=== PATIENT | male | born 1970 | race Hispanic/Latino ===

== ENCOUNTER 2018-07-10 16:38 | Inpatient (IN) | payer BC ==
[2018-07-10 16:46] VITALS: BMI 36.9
[2018-07-10] MEDS ORDERED: Morphine 4 mg/ml ISec IVP STA ×3 (16:51→21:36)
[2018-07-10] MEDS ORDERED: Sodium Chloride 0.9% 1,000 ML IV STA ×2 (16:51→18:50)
[2018-07-10] MEDS ORDERED: Iohexol 240 (50 ml) ONE (17:02)
[2018-07-10 17:10] LABS: VENOUS BLOOD GAS BASE EXCESS 1.7 mmol/L (0.0-2.0); VENOUS BLOOD GAS PO2 69 mm/Hg (30-55); VENOUS BLOOD PH 7.39 (7.32-7.43)
[2018-07-10 17:16] VITALS: TEMP 98.6
[2018-07-10 17:18] LABS: INR 1.06; PARTIAL THROMBOPLASTIN TIME 36.1 Seconds (26.9-38.3); PROTHROMBIN TIME 11.8 SECONDS (9.4-12.5)
[2018-07-10 17:21] LABS: BASO # 0.03 K/mm3 (0.0-2.0); BASO % 0.3 % (0.0-3.0); EOS # 0.1 (0.0-0.7); EOS % 0.8 % (1.5-5.0); HEMOGLOBIN 17.9 g/dL (14.0-18.0); LYMPH # 2.2 (1.2-3.4); MEAN CELL VOLUME 78.9 fl (80.0-105.0); MEAN CORPUSCULAR HEMOGLOBIN 28.4 pg (25.0-35.0); MEAN CORPUSCULAR HGB CONC 35.9 g/dl (31.0-37.0); MEAN PLATELET VOLUME 8.8 fl (7.0-11.0); MONO # 0.7 (0.1-0.6); MONO % 7.3 % (1.0-6.0); RBC 6.31 10^6/uL (3.5-6.1); RED CELL DISTRIBUTION WIDTH 12.7 % (11.5-14.5); WHITE BLOOD COUNT 9.1 10^3/uL (4.5-11.0)
--- NOTE | 2018-07-10 17:30 | ED PDOC ---
Arrival/HPI - General Chief Complaint: GI Problem Time Seen by Provider: 07/10/18 16:39 Historian: Patient - History of Present Illness Narrative History of Present Illness (Text): 07/10/18 17:26 A 47 year old male, whose past medical history includes HLD, surgeries: diverticulitis w/ colectomy, mesh placement, and mesh rupture repair all done by Dr. Trujillo, presents to the emergency department for a complaint of abdominal p ain. Patient was seen at Dr. Barba's office today for abdominal pain, and was sent to the emergency department for further evaluation. Patient reports pain since yesterday, which worsened today. The pain is diffuse and achy, with associated nausea, 4 episodes of vomiting, not able to tolerate PO fluids, and feeling constipated. Patient denies fevers, chills, headache, dizziness, chest pain, shortness of breath, dyspnea on exertion, cough, back pain, neck pain, diarrhea, blood in bowel movements, urinary/bowel changes, or any other complaint. PMD: Dr. Barba Time/Duration: Other (Yesterday) Symptom Onset: Sudden Symptom Course: Worsening Activities at Onset: Rest, Light Context: Home Past Medical History - Provider Review Nursing Documentation Reviewed: Yes - Infectious Disease Hx of Infectious Diseases: None - Tetanus Immunization Tetanus Immunization: Unknown - Cardiac Hx Hyperlipemia: Yes - Gastrointestinal Hx Diverticulitis: Yes Other/Comment: Hernia - Psychiatric Hx Depression: No Hx Emotional Abuse: No Hx Physical Abuse: No Hx Substance Use: No - Surgical History Other/Comment: Colon resection. Hernia repair with mesh - Anesthesia Hx Anesthesia: Yes Hx Anesthesia Reactions: No Hx Malignant Hyperthermia: No - Suicidal Assessment Feels Threatened In Home Enviroment: No Family/Social History - Physician Review Nursing Documentation Reviewed: Yes Family/Social History: No Known Family HX Smoking Status: Never Smoked Hx Alcohol Use: No Hx Substance Use: No Hx Substance Use Treatment: No Allergies/Home Meds Allergies/Adverse Reactions: Allergies No Known Allergies Allergy (Verified 07/10/18 16:46) Review of Systems - Physician Review All systems were reviewed & negative as marked: Yes - Review of Systems Constitutional: absent: Fevers Respiratory: absent: SOB, Cough Cardiovascular: absent: Chest Pain, SEHR Gastrointestinal: Abdominal Pain, Constipation, Nausea, Vomiting, Food Intolerance. absent: Diarrhea Genitourinary Male: absent: Urinary Output Changes Musculoskeletal: absent: Back Pain, Neck Pain Neurological: absent: Headache, Dizziness Physical Exam Vital Signs Reviewed: Yes Vital Signs Temp Pulse Resp BP Pulse Ox 07/10/18 16:38 98.6 F 90 18 143/59 L 95 Temperature: Afebrile Blood Pressure: Hypotensive Pulse: Regular Respiratory Rate: Normal Appearance: Positive for: Well-Appearing, Non-Toxic, Comfortable Pain Distress: None Mental Status: Positive for: Alert and Oriented X 3 - Systems Exam Head: Present: Atraumatic, Normocephalic Pupils: Present: PERRL Extroacular Muscles: Present: EOMI Conjunctiva: Present: Normal Mouth: Present: Moist Mucous Membranes Neck: Present: Normal Range of Motion Respiratory/Chest: Present: Clear to Auscultation, Good Air Exchange. No: Respiratory Distress, Accessory Muscle Use Cardiovascular: Present: Regular Rate and Rhythm, Normal S1, S2. No: Murmurs Abdomen: Present: Tenderness (Diffusely tender. ), Distention, Guarding. No: Peritoneal Signs Back: Present: Normal Inspection Upper Extremity: Present: Normal Inspection. No: Cyanosis, Edema Lower Extremity: Present: Normal Inspection. No: Edema Neurological: Present: GCS=15, CN II-XII Intact, Speech Normal Skin: Present: Warm, Dry, Normal Color. No: Rashes Psychiatric: Present: Alert, Oriented x 3, Normal Insight, Normal Concentration Medical Decision Making ED Course and Treatment: 07/10/18 17:32 Impression: A 47 year old male presents to the emergency department with a complaint of worsening abdominal pain, advised to come in for evaluation by PMD. Differential Diagnosis included but are not limited to: abdominal pain r/o obstruction Plan: -- Abdomen/Pelvis CT -- Abdominal X-Ray -- Urinalysis -- Labs -- Morphine, Zofran, Pepcid, IV Fluids -- Reassess and disposition Prior Visits: Notes and results from previous visits were reviewed. Progress Notes: 07/10/18 17:34: Case discussed with Dr. Castillo (surgical assist) immediately upon arrival. Ordered stat abdominal x- ray and CT of abdomen. She evaluated patient and recommended stat NG tube, which she is going to place. 07/10/18 18:02 AXR completed. No evidence of clear obstruction. No free air. Dr. Castillo placing NGT now. Glucose elevated and being treated with IVF. Not in DKA at this time. CT pending. 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 Trujillo, and they recommended admission to the primary service with surgery on concsult. Signed out to Dr. Nix to f/u CT, reevaluate and disposition. - Critical Care Critical Care Minutes: 30 minutes - Lab Interpretations Lab Results: pO2 69 mm/Hg (30-55) H 07/10/18 17:00 VBG pH 7.39 (7.32-7.43) 07/10/18 17:00 VBG pCO2 45.0 (40-60) 07/10/18 17:00 VBG HCO3 27.2 mmol/l (21-28) 07/10/18 17:00 VBG Total CO2 28.6 mmol.L (22-28) H 07/10/18 17:00 VBG O2 Sat (Calc) 93.6 % (40-65) H 07/10/18 17:00 VBG Base Excess 1.7 mmol/L (0.0-2.0) 07/10/18 17:00 VBG Potassium 4.1 mmol/L (3.6-5.2) 07/10/18 17:00 Sodium 140.0 mmol/L (132-148) 07/10/18 17:00 Chloride 98.0 mmol/L (98-107) 07/10/18 17:00 Glucose 340 mg/dl (75-110) H 07/10/18 17:00 Lactate 1.8 mmol/L (0.7-2.1) 07/10/18 17:00 FiO2 21.0 % 07/10/18 17:00 PT 11.8 SECONDS (9.4-12.5) 07/10/18 17:00 INR 1.06 07/10/18 17:00 APTT 36.1 Seconds (26.9-38.3) 07/10/18 17:00 I have reviewed the lab results: Yes - RAD Interpretation Radiology Orders: 07/10/18 16:51 ABD PELVIS PO & IV CONTRAST [CT] Stat 07/10/18 16:55 ABD 2 VIEWS (FLAT/UP OR DECUB) [RAD] Stat - Medication Orders Current Medication Orders: Sodium Chloride (Sodium Chloride 0.9%) 1,000 mls @ 100 mls/hr IV .Q10H STA Stop: 07/11/18 02:50 Last Admin: 07/10/18 17:03 Dose: 100 mls/hr eMAR Start Stop Document 07/10/18 17:03 GMD (Rec: 07/10/18 17:03 D [id number]) Intravenous Solution Start Date 07/10/18 Start Time 17:03 Discontinued Medications Famotidine (Pepcid) 20 mg IVP STAT STA Stop: 07/10/18 16:52 Last Admin: 07/10/18 17:03 Dose: 20 mg IVP Administration Document 07/10/18 17:03 GMD (Rec: 07/10/18 17:03 D [id number]) Charges for Administration # of IVP Administrations 1 Morphine Sulfate (Morphine) 4 mg IVP STAT STA Stop: 07/10/18 16:52 Last Admin: 07/10/18 17:03 Dose: 4 mg MAR Pain Assessment Document 07/10/18 17:03 GMD (Rec: 07/10/18 17:03 D [id number]) Pain Reassessment Is this a pain reassessment? No IVP Administration Document 07/10/18 17:03 GMD (Rec: 07/10/18 17:03 D [id number]) Charges for Administration # of IVP Administrations 1 Ondansetron HCl (Zofran Inj) 4 mg IVP STAT STA Stop: 07/10/18 16:52 Last Admin: 07/10/18 17:03 Dose: 4 mg IVP Administration Document 07/10/18 17:03 GMD (Rec: 07/10/18 17:03 D [id number]) Charges for Administration # of IVP Administrations 1 - Scribe Statement The provider has reviewed the documentation as recorded by the Scribe Brianne Cuadra Provider Scribe Attestation: All medical record entries made by the Scribe were at my direction and personally dictated by me. I have reviewed the chart and agree that the record accurately reflects my personal performance of the history, physical exam, medical decision making, and the department course for this patient. I have also personally directed, reviewed, and agree with the discharge instructions and disposition. Disposition/Present on Arrival - Present on Arrival Any Indicators Present on Arrival: No History of DVT/PE: No History of Uncontrolled Diabetes: No Urinary Catheter: No History of Decub. Ulcer: No History Surgical Site Infection Following: None - Disposition Have Diagnosis and Disposition been Completed?: No Diagnosis: Abdominal pain Disposition Time: 18:40 Condition: FAIR Forms: [facility] (Gambian)
[2018-07-10 17:34] LABS: ALB/GLOB RATIO 1.4 (1.1-1.8); ALBUMIN 4.3 g/dL (3.0-4.8); ALT/SGPT 30 U/L (7-56); AST/SGOT 25 U/L (17-59); BLOOD UREA NITROGEN 17 mg/dL (7-21); CALCIUM 9.4 mg/dL (8.4-10.5); GFR NON-AFRICAN AMERICAN > 60; LIPASE 52 U/L (23-300)
[2018-07-10] MEDS ORDERED: Lidocaine 2% Jelly (Uro-Jet) TOP ONE (17:36)
[2018-07-10] MEDS ORDERED: Phenol Topical 1.4% Throat Spray (180 ml) MT PRN (17:43)
--- NOTE | 2018-07-10 18:48 | CP.PCM.CON ---
History of Present Illness - History of Present Illness History of Present Illness: General Surgery for Dr Emil Kellogg, PGY-2 Pt seen/examined at bedside 47M w/PSH significant for laparotomy x 3 as below admitted for abdominal pain x 1 day. Pt reports awaking at 3:30am on day of admission with sharp, stabbing, pressure, intermittent, diffuse, non radiating abdominal pain. Pain alleviated by supine position, aggravated by sitting or movement. Pt reports evaluation by PMD with instructions to report to ED for further work up. Admits to nausea, emesis (food stuff, nbnb- after lunch at 1pm), fevers (Tmax 101.7 at work), chills, headache, weakness. Last BM 2 days prior to admission. Normal bowel pattern is multiple times per day. Denies flatus, cough, CP, SOB, dizziness, other complaints. In ED - No leukocytosis, afebrile, lactate 1.8, lipase 52. NGT placed. PMH: HLD, pre-diabetic, hx diverticulitis (last episode 2005) PSH: Laparotomy x 3 - partial sigmoidectomy, ventral hernia repair with mesh, repair of recurrent ventral hernia, ulnar nerve transection repair of RUE All: NKDA SH: Denies ETOH, tobacco or illicit drug use FH: Non contributory PMD: [place] Review of Systems - Review of Systems All systems: reviewed and no additional remarkable complaints except - Constitutional Constitutional: Chills, Fever - EENT Eyes: Change in Vision (chronic) Ears: absent: Dizziness Nose/Mouth/Throat: absent: Sore Throat - Cardiovascular Cardiovascular: absent: Chest Pain - Gastrointestinal Gastrointestinal: Abdominal Pain, Bloating, Change in Bowel Habits, Constipation, Nausea, Vomiting. absent: Coffee Ground Emesis, Diarrhea, Hematemesis, Hematochezia, Loose Stools, Melena - Genitourinary Genitourinary: absent: Difficulty Urinating, Dysuria, Hematuria - Musculoskeletal Musculoskeletal: absent: Neck Pain - Integumentary Integumentary: absent: Rash - Neurological Neurological: Weakness. absent: Dizziness - Psychiatric Psychiatric: Change in Appetite Past Patient History - Infectious Disease Hx of Infectious Diseases: None - Tetanus Immunizations Tetanus Immunization: Unknown - Past Social History Smoking Status: Never Smoked - CARDIAC Hx Hypercholesterolemia: Yes - GASTROINTESTINAL Hx Diverticulitis: Yes Other/Comment: Hernia - PSYCHIATRIC Hx Depression: No Hx Emotional Abuse: No Hx Physical Abuse: No Hx Substance Use: No - SURGICAL HISTORY Other/Comment: Colon resection. Hernia repair with mesh - ANESTHESIA Hx Anesthesia: Yes Hx Anesthesia Reactions: No Hx Malignant Hyperthermia: No Meds Allergies/Adverse Reactions: Allergies Allergy/AdvReac Type Severity Reaction Status Date / Time No Known Allergies Allergy Verified 07/10/18 16:46 - Medications Medications: Current Medications Sodium Chloride (Sodium Chloride 0.9%) 1,000 mls @ 100 mls/hr IV .Q10H STA Stop: 07/11/18 02:50 Last Admin: 07/10/18 17:03 Dose: 100 mls/hr Phenol/Menthol (Phenaseptic 1.4% Throat [place]) 1 ml MT Q2H PRN PRN Reason: Sore Throat Physical Exam - Constitutional Appears: Non-toxic, No Acute Distress - Head Exam Head Exam: ATRAUMATIC, NORMAL INSPECTION, NORMOCEPHALIC - Eye Exam Eye Exam: EOMI, Normal appearance - ENT Exam ENT Exam: Mucous Membranes Moist, Normal Exam - Neck Exam Neck exam: Positive for: Full Rom, Normal Inspection - Respiratory Exam Respiratory Exam: Clear to Auscultation Bilateral, NORMAL BREATHING PATTERN - Cardiovascular Exam Cardiovascular Exam: REGULAR RHYTHM, +S1, +S2 - GI/Abdominal Exam GI & Abdominal Exam: Diminished Bowel Sounds, Distended, Firm, Tenderness ( diffuse). absent: Guarding, Rebound, Rigid, Soft - Rectal Exam Rectal Exam: Deferred - Extremities Exam Extremities exam: Positive for: normal inspection - Neurological Exam Neurological exam: Alert, CN II-XII Intact, Oriented x3 - Psychiatric Exam Psychiatric exam: Normal Affect, Normal Mood - Skin Skin Exam: Dry, Intact, Normal Color, Warm Results - Vital Signs Recent Vital Signs: Last Vital Signs Temp 98.6 F 07/10/18 16:38 Pulse 90 07/10/18 16:38 Resp 18 07/10/18 16:38 BP 143/59 L 07/10/18 16:38 Pulse Ox 95 07/10/18 16:38 - Labs Result Diagrams: 07/10/18 17:00 07/10/18 17:00 Labs: Laboratory Results - last 24 hr 07/10/18 07/10/18 07/10/18 17:00 17:00 17:00 WBC 9.1 RBC 6.31 H Hgb 17.9 Hct 49.8 MCV 78.9 L MCH 28.4 MCHC 35.9 RDW 12.7 Plt Count 158 MPV 8.8 Neut % (Auto) 67.6 Lymph % (Auto) 24.0 [place] % (Auto) 7.3 H Eos % (Auto) 0.8 L Baso % (Auto) 0.3 Lymph # (Auto) 2.2 [place] # (Auto) 0.7 H Eos # (Auto) 0.1 Baso # (Auto) 0.03 Absolute Neuts (auto) 6.16 PT 11.8 INR 1.06 APTT 36.1 pO2 69 H VBG pH 7.39 VBG pCO2 45.0 VBG HCO3 27.2 VBG Total CO2 28.6 H VBG O2 Sat (Calc) 93.6 H VBG Base Excess 1.7 VBG Potassium 4.1 Sodium 140.0 Chloride 98.0 Glucose 340 H Lactate 1.8 FiO2 21.0 Potassium Carbon Dioxide Anion Gap BUN Creatinine Est GFR ( Amer) Est GFR (Non-Af Amer) Random Glucose Calcium Magnesium Total Bilirubin AST ALT Alkaline Phosphatase Total Protein Albumin Globulin Albumin/Globulin Ratio Lipase Venous Blood Potassium 4.1 07/10/18 17:00 WBC RBC Hgb Hct MCV MCH MCHC RDW Plt Count MPV Neut % (Auto) Lymph % (Auto) [place] % (Auto) Eos % (Auto) Baso % (Auto) Lymph # (Auto) [place] # (Auto) Eos # (Auto) Baso # (Auto) Absolute Neuts (auto) PT INR APTT pO2 VBG pH VBG pCO2 VBG HCO3 VBG Total CO2 VBG O2 Sat (Calc) VBG Base Excess VBG Potassium Sodium 136 Chloride 100 Glucose Lactate FiO2 Potassium 4.1 Carbon Dioxide 25 Anion Gap 16 BUN 17 Creatinine 0.7 L Est GFR ( Amer) > 60 Est GFR (Non-Af Amer) > 60 Random Glucose 314 H* D Calcium 9.4 Magnesium 1.7 Total Bilirubin 0.8 AST 25 ALT 30 Alkaline Phosphatase 128 H Total Protein 7.3 Albumin 4.3 Globulin 3.0 Albumin/Globulin Ratio 1.4 Lipase 52 Venous Blood Potassium Assessment & Plan - Assessment and Plan (Free Text) Assessment: 47M w/PSH sig for laparotomy x 3 with SBO Plan: NPO IVF Pain control OOBTC Ambulate NGT to low continuous wall suction monitor for bowel function Intake/output Further care as per primary team DW Dr. Ronnie Kellogg, PGY-2 - Date & Time Date: 07/10/18 Time: 18:48
[2018-07-10] MEDS ORDERED: Iohexol 350 MG/100 ML VIAL ONE (18:55)
--- NOTE | 2018-07-10 21:31 | ED PDOC ---
Physical Exam Vital Signs Temp Pulse Resp BP Pulse Ox 07/10/18 20:34 83 18 150/78 95 07/10/18 16:38 98.6 F 90 18 143/59 L 95 Medical Decision Making ED Course and Treatment: 07/10/18 21:31 Case endorsed to me by . Lab results pending. 07/10/18 21:58 CT Abdomen/Pelvis, reviewed by radiologist: IMPRESSION: 1. Findings described above involving the right side and small intestinal tract all compatible with enteritis and evolving mechanical small intestinal obstruction. 2. A nasogastric tube resides in satisfactory position. 3. Evidence of previous surgical anastomosis in the mid transverse colon and upper rectum. 4. Status post appendectomy. 5. Hepatomegaly. 6. A small left inguinal hernia is noted which contains fat. 7. A mid anterior ventral herniorrhaphy mesh is present. Electronically signed on Jul 10, 2018 9:41:05 PM EDT by: Gene Scott M.D., M.B.A., Certified By [employer] Trained MRI and CT Specialist 07/10/18 23:30 [address] [facility]. surgeyr aware of findings accepted by pmd. - Lab Interpretations Lab Results: pO2 69 mm/Hg (30-55) H 07/10/18 17:00 VBG pH 7.39 (7.32-7.43) 07/10/18 17:00 VBG pCO2 45.0 (40-60) 07/10/18 17:00 VBG HCO3 27.2 mmol/l (21-28) 07/10/18 17:00 VBG Total CO2 28.6 mmol.L (22-28) H 07/10/18 17:00 VBG O2 Sat (Calc) 93.6 % (40-65) H 07/10/18 17:00 VBG Base Excess 1.7 mmol/L (0.0-2.0) 07/10/18 17:00 VBG Potassium 4.1 mmol/L (3.6-5.2) 07/10/18 17:00 Sodium 140.0 mmol/L (132-148) 07/10/18 17:00 Chloride 98.0 mmol/L (98-107) 07/10/18 17:00 Glucose 340 mg/dl (75-110) H 07/10/18 17:00 Lactate 1.8 mmol/L (0.7-2.1) 07/10/18 17:00 FiO2 21.0 % 07/10/18 17:00 PT 11.8 SECONDS (9.4-12.5) 07/10/18 17:00 INR 1.06 07/10/18 17:00 APTT 36.1 Seconds (26.9-38.3) 07/10/18 17:00 Total Bilirubin 0.8 mg/dL (0.2-1.3) 07/10/18 17:00 AST 25 U/L (17-59) 07/10/18 17:00 ALT 30 U/L (7-56) 07/10/18 17:00 Alkaline Phosphatase 128 U/L (38-126) H 07/10/18 17:00 Total Protein 7.3 g/dL (5.8-8.3) 07/10/18 17:00 Albumin 4.3 g/dL (3.0-4.8) 07/10/18 17:00 Globulin 3.0 gm/dL 07/10/18 17:00 Albumin/Globulin Ratio 1.4 (1.1-1.8) 07/10/18 17:00 Lipase 52 U/L (23-300) 07/10/18 17:00 - RAD Interpretation Radiology Orders: 07/10/18 16:51 ABD PELVIS PO & IV CONTRAST [CT] Stat 07/10/18 16:55 ABD 2 VIEWS (FLAT/UP OR DECUB) [RAD] Stat 07/10/18 18:11 CXR [CHEST PORTABLE] [RAD] Stat - Medication Orders Current Medication Orders: Hydromorphone HCl (Dilaudid) 0.5 mg IVP Q3H PRN PRN Reason: Pain, severe (8-10) Sodium Chloride (Sodium Chloride 0.9%) 1,000 mls @ 150 mls/hr IV .Q6H40M STA Stop: 07/10/18 23:30 Last Admin: 07/10/18 19:56 Dose: 150 mls/hr eMAR Start Stop Document 07/10/18 19:56 EB (Rec: 07/10/18 19:56 EB [id number]) Intravenous Solution Start Date 07/10/18 Start Time 19:56 Lactated Ringer's (Lactated Ringer's) 1,000 mls @ 150 mls/hr IV .Q6H40M BRYNN Ketorolac Tromethamine (Toradol) 15 mg IVP Q6H PRN PRN Reason: Pain, moderate (4-7) Ondansetron HCl (Zofran Inj) 4 mg IVP Q6H PRN PRN Reason: Nausea/Vomiting Phenol/Menthol (Phenaseptic 1.4% Throat [place]) 1 ml MT Q2H PRN PRN Reason: Sore Throat Discontinued Medications Famotidine (Pepcid) 20 mg IVP STAT STA Stop: 07/10/18 16:52 Last Admin: 07/10/18 17:03 Dose: 20 mg IVP Administration Document 07/10/18 17:03 GMD (Rec: 07/10/18 17:03 D [id number]) Charges for Administration # of IVP Administrations 1 Sodium Chloride (Sodium Chloride 0.9%) 1,000 mls @ 100 mls/hr IV .Q10H STA Stop: 07/11/18 02:50 Last Admin: 07/10/18 17:03 Dose: 100 mls/hr eMAR Start Stop Document 07/10/18 17:03 GMD (Rec: 07/10/18 17:03 D [id number]) Intravenous Solution Start Date 07/10/18 Start Time 17:03 Lidocaine HCl (Xylocaine 2% (Uro-Jet)) 0 ea TOP ONCE ONE Stop: 07/10/18 17:37 Last Admin: 07/10/18 18:23 Dose: Not Given Non-Admin Reason: used by MD Morphine Sulfate (Morphine) 4 mg IVP STAT STA Stop: 07/10/18 16:52 Last Admin: 07/10/18 17:03 Dose: 4 mg MAR Pain Assessment Document 07/10/18 17:03 GMD (Rec: 07/10/18 17:03 D [id number]) Pain Reassessment Is this a pain reassessment? No IVP Administration Document 07/10/18 17:03 GMD (Rec: 07/10/18 17:03 D [id number]) Charges for Administration # of IVP Administrations 1 Morphine Sulfate (Morphine) 4 mg IVP STAT STA Stop: 07/10/18 18:43 Last Admin: 07/10/18 19:55 Dose: 4 mg MAR Pain Assessment Document 07/10/18 19:55 EB (Rec: 07/10/18 19:55 EB [id number]) Pain Reassessment Is this a pain reassessment? No Sleep Is patient sleeping during reassessment? No Presence of Pain Presence of Pain Yes Pain Scale Used Protocol: [facility] Scale Used Numeric Description Intensity of Pain at present 10 IVP Administration Document 07/10/18 19:55 EB (Rec: 07/10/18 19:55 [id number] Charges for Administration # of IVP Administrations 1 Ondansetron HCl (Zofran Inj) 4 mg IVP STAT STA Stop: 07/10/18 16:52 Last Admin: 07/10/18 17:03 Dose: 4 mg IVP Administration Document 07/10/18 17:03 GMD (Rec: 07/10/18 17:03 GMD [id number]) Charges for Administration # of IVP Administrations 1 Disposition/Present on Arrival - Present on Arrival Any Indicators Present on Arrival: No History of DVT/PE: No History of Uncontrolled Diabetes: No Urinary Catheter: No History of Decub. Ulcer: No History Surgical Site Infection Following: None - Disposition Have Diagnosis and Disposition been Completed?: Yes Diagnosis: Abdominal pain, SBO (small bowel obstruction) Disposition: HOME/ ROUTINE Disposition Time: 20:00 Patient Problems: Current Active Problems Problem Status Onset Abdominal pain Acute Condition: STABLE
[2018-07-10 22:17] LABS: PH,URINE 6.5 (4.7-8.0); URINE APPEARANCE CLEAR (CLEAR); URINE BILIRUBIN NEGATIVE (NEGATIVE); URINE BLOOD NEGATIVE (NEGATIVE); URINE COLOR LIGHT YELLOW (YELLOW); URINE GLUCOSE (UA) 500 mg/dL (NEGATIVE); URINE LEUKOCYTE ESTERASE NEGATIVE Leu/uL (NEGATIVE); URINE PROTEIN 30 mg/dL (<30 mg/dL); URINE UROBILINOGEN 0.2 E.U./dL (<1 E.U./dL)
[2018-07-10] MEDS: HYDROmorphone 0.5 mg/0.5 ml ISec IVP PRN (23:56)
[2018-07-11] MEDS ORDERED: Lactated Ringer's 1,000 ML IV SCH
[2018-07-11 00:58] VITALS: RESP 19
[2018-07-11 02:54] VITALS: BP 155/74; PULSE 81; O2SAT 98
[2018-07-11] MEDS: HYDROmorphone 0.5 mg/0.5 ml ISec IVP PRN (03:03)
--- NOTE | 2018-07-11 08:19 | CP.PCM.PN ---
Subjective - Date & Time of Evaluation Date of Evaluation: 07/11/18 Time of Evaluation: 08:09 - Subjective Subjective: Surgery Progress Note for Dr. Trujillo 47M seen and evaluated at bedside this morning. Patient had episode of bilious vomiting upon coming to floors last night. No vomiting since. NGT output 750cc since this morning. Patient had 1 small bowel movement this morning and passing gas. Ambulating without difficulty. Minimal abdominal pain. Denies f/c, SOB, CP, or urinary symptoms. Objective - Vital Signs/Intake and Output Vital Signs (last 24 hours): Temp Pulse Resp BP Pulse Ox 98.6 F 81 19 155/74 H 98 07/10/18 16:38 07/10/18 23:15 07/11/18 00:44 07/10/18 23:15 07/10/18 23:15 - Medications Medications: Current Medications Hydromorphone HCl (Dilaudid) 0.5 mg IVP Q3H PRN PRN Reason: Pain, severe (8-10) Last Admin: 07/11/18 03:03 Dose: 0.5 mg Lactated Ringer's (Lactated Ringer's) 1,000 mls @ 150 mls/hr IV .Q6H40M BRYNN Last Admin: 07/11/18 00:30 Dose: 150 mls/hr Ketorolac Tromethamine (Toradol) 15 mg IVP Q6H PRN PRN Reason: Pain, moderate (4-7) Last Admin: 07/11/18 01:38 Dose: 15 mg Ondansetron HCl (Zofran Inj) 4 mg IVP Q6H PRN PRN Reason: Nausea/Vomiting Last Admin: 07/10/18 23:56 Dose: 4 mg Phenol/Menthol (Phenaseptic 1.4% Throat [place]) 1 ml MT Q2H PRN PRN Reason: Sore Throat - Labs Labs: 07/10/18 17:00 07/10/18 17:00 PT 11.8 SECONDS (9.4-12.5) 07/10/18 17:00 INR 1.06 07/10/18 17:00 APTT 36.1 Seconds (26.9-38.3) 07/10/18 17:00 - Constitutional Appears: Well, Non-toxic, No Acute Distress - Head Exam Head Exam: ATRAUMATIC, NORMAL INSPECTION, NORMOCEPHALIC - Eye Exam Eye Exam: EOMI - ENT Exam ENT Exam: Mucous Membranes Moist Additional comments: NGT in place on suction - 750cc bilious output overnight - Respiratory Exam Respiratory Exam: NORMAL BREATHING PATTERN. absent: Wheezes, Respiratory Distress - Cardiovascular Exam Cardiovascular Exam: REGULAR RHYTHM, +S1, +S2 - GI/Abdominal Exam GI & Abdominal Exam: Distended, Soft, Normal Bowel Sounds. absent: Guarding, Rigid, Tenderness, Rebound - Neurological Exam Neurological Exam: Alert, Awake, Oriented x3 - Psychiatric Exam Psychiatric exam: Anxious, Normal Mood - Skin Skin Exam: Dry, Intact, Normal Color, Warm Assessment and Plan - Assessment and Plan (Free Text) Assessment: 47M w/ pSBO Plan: NGT removed today Total output - 950cc biliious output ADAT - CLD Antiemetics and analgesics PRN Monitor bowel function D/w Dr. Ronnie Rodriguez PGY1
--- NOTE | 2018-07-11 10:09 | CT ---
Date of service: 07/10/2018 PROCEDURE: CT Abdomen and Pelvis with contrast HISTORY: abd pain r/o obstruction; h/o abd sx x 3 COMPARISON: None. TECHNIQUE: Contrast dose: 100 cc of Omni 350 Radiation dose: Total exam DLP = 1085.92 mGy-cm. This CT exam was performed using one or more of the following dose reduction techniques: Automated exposure control, adjustment of the mA and/or kV according to patient size, and/or use of iterative reconstruction technique. FINDINGS: LOWER THORAX: Unremarkable. LIVER: Unremarkable. No gross lesion or ductal dilatation. GALLBLADDER AND BILE DUCTS: Unremarkable. PANCREAS: Unremarkable. No gross lesion or ductal dilatation. SPLEEN: Unremarkable. ADRENALS: Unremarkable. No mass. KIDNEYS AND URETERS: Unremarkable. No hydronephrosis. No solid mass. VASCULATURE: Unremarkable. No aortic aneurysm. No aortic atherosclerotic calcification or mural plaque present. BOWEL: Mildly dilated fluid-filled small bowel loops are seen in the mid abdomen. There is transition to small caliber small bowel in the right lower quadrant. Findings are consistent with partial obstruction. A nasogastric tube is seen in the stomach. APPENDIX: Appendectomy PERITONEUM: Unremarkable. No free fluid. No free air. LYMPH NODES: Unremarkable. No enlarged lymph nodes. BLADDER: Unremarkable. REPRODUCTIVE: Unremarkable. BONES: No acute fracture. OTHER FINDINGS: The report concurs with the preliminary [facility] report IMPRESSION: Mildly dilated fluid-filled small bowel loops are seen in the mid abdomen. There is transition to small caliber small bowel in the right lower quadrant. Findings are consistent with partial obstruction. A nasogastric tube is seen in the stomach.
--- NOTE | 2018-07-11 10:48 | RAD ---
Date of service: 07/10/2018 HISTORY: s/p NGT placement COMPARISON: No prior. TECHNIQUE: 1 view obtained. FINDINGS: LUNGS: No active pulmonary disease. PLEURA: No significant pleural effusion identified, no pneumothorax apparent. CARDIOVASCULAR: No aortic atherosclerotic calcification present. Normal cardiac size. No pulmonary vascular congestion. OSSEOUS STRUCTURES: No significant abnormalities. VISUALIZED UPPER ABDOMEN: Normal. OTHER FINDINGS: None. IMPRESSION: Nasogastric tube in satisfactory position.
--- NOTE | 2018-07-11 11:28 | RAD ---
Date of service: 07/10/2018 HISTORY: abd pain r/o obstruction COMPARISON: None available. TECHNIQUE: Three view obtained. FINDINGS: BOWEL: Normal. No obstruction. No free air. BONES: Normal. OTHER FINDINGS: None. IMPRESSION: No active disease.
[2018-07-11] MEDS: Insulin Reg-HIGH-Coverage SC SCH ×2 (12:03→16:07)
--- NOTE | 2018-07-11 22:11 | HP ---
DATE OF EXAM: 07/11/2018 HISTORY OF PRESENT ILLNESS: The patient is a 47-year-old male in room 373, bed 1. He presented to the office yesterday afternoon and was seen and diagnosed with a small bowel obstruction and sent to the emergency room. In the emergency room, CAT scan was performed, which shows that he did in fact has a small bowel obstruction. PAST MEDICAL HISTORY: Remarkable for asthma and allergies. ALLERGIES: NO KNOWN MEDICATIONS . FAMILY HISTORY: Noncontributory. SOCIAL HISTORY: The patient never smoked. PHYSICAL EXAMINATION: VITAL SIGNS: Temperature of 98.6, pulse rate of 90, blood pressure of 143/59, and O2 saturation of 95. HEENT: PERRLA. EOMI. No icterus is present. NECK: Supple. There is a full range of motion. No adenopathy is appreciated. NEUROLOGIC: The patient is intact. ABDOMEN: Soft and distended. Four quadrant tenderness on palpation. No rebound. Bowel sounds are absent. LABORATORY DATA: WBC of 9.1 with no shift. Chemistry shows everything is normal with the exception of glucose of 314, repeat today was 330. The patient had been on diabetic medication, which he stopped on his own. The following day, Friday at 2 o'clock in the afternoon, the patient had lunch, he is having bowel movements. His abdomen is soft and nondistended. Bowel sounds are normoactive. The patient will be discharged. DISCHARGE DIAGNOSES: 1. Small bowel obstruction. 2. Diabetes mellitus. 3. Asthma. PLAN: Metformin 1 g was called in for twice a day consumption and a glucose meter was also called in. Emeterio Barba MD
--- NOTE | 2018-07-14 02:41 | DS ---
ADMISSION DIAGNOSIS: Small bowel obstruction. DISCHARGE DIAGNOSIS: Small bowel obstruction. SECONDARY DIAGNOSES: Type 2 diabetes mellitus, mild intermittent asthma and hyperlipidemia. CONSULTATIONS: Dr. Trujillo (General Surgery). IMAGING STUDIES: 1. Chest x-ray demonstrated no acute pathology. 2. Abdominal x-ray demonstrated no acute pathology. 3. CT of the abdomen and pelvis with p.o. and IV contrast demonstrated a mildly dilated fluid filled small bowel to the mid abdomen consistent with a partial small-bowel obstruction. DIAGNOSTIC STUDIES: None. PROCEDURES: 1. Placement of NG tube. HISTORY OF PRESENT ILLNESS: The patient is a 47-year-old man with a past medical history of multiple abdominal surgeries including laparotomy, partial sigmoidectomy and ventral hernia repair who presented for evaluation of a 1 day history of abdominal pain, constipation and decreased p.o. intake. His symptoms started on the day of presentation to the ED throughout the course of the day he developed nausea and vomiting. He presented to his PMD for evaluation and physical examination was concerning for a small-bowel obstruction. He was sent to the ED for further evaluation where a CT of the abdomen and pelvis confirmed a partial small bowel obstruction. The patient had an NG tube placed, was maintained n.p.o and subsequently admitted for continued management. HOSPITAL COURSE: Upon admission to the general medical [facility] he was evaluated by Dr. Trujillo and the surgical team. The patient reported marked relief of symptoms after placement of NG tube. Over the following 36 hours he demonstrated near resolution of his symptoms and was noted to pass flatus. His NG tube was removed and a diet was restarted and advanced to a regular diet without difficulty. His symptoms did not recur and he was passing flatus and had a BM. After reevaluation, he was cleared for discharge to home. CONDITION: Good, improved. DISPOSITION: Home. DISCHARGE MEDICATIONS: Metformin 1000 mg p.o. b.i.d. DISCHARGE INSTRUCTIONS: The patient was advised to adhere to postprocedure instructions as per Dr. Trujillo and the surgical team. He was also advised that if he has any recurrence of his symptoms to present to his PMD or to the nearest ED immediately. FOLLOWUP: The patient is to follow up with his PMD within 1 week of discharge. Ck Barba MD MTDD
== END 2018-07-11 17:15 | disposition home or self-care (01) | DRG 390 ==
LOC: ED 16:38 → ERH 21:54 → 3RSO 23:25
PROVIDERS: ADMIT Internal Medicine; ATTEND Internal Medicine
PROC: 0D9670Z Drainage of Stomach with Drainage Device, Via Natural or Artificial Opening (ICD-10-PCS; principal; 2018-07-10)
DX: K56.600 Partial intestinal obstruction, unspecified as to cause (principal); K40.90 Unilateral inguinal hernia, without obstruction or gangrene, not specified as recurrent; J45.20 Mild intermittent asthma, uncomplicated; E78.5 Hyperlipidemia, unspecified; E11.9 Type 2 diabetes mellitus without complications; Z79.84 Long term (current) use of oral hypoglycemic drugs